=== PATIENT | male | born 1995 | race Hispanic/Latino ===

== ENCOUNTER 2021-04-22 19:33 | Emergency (ER) | payer SELFPAY, OTHER | END 2021-04-22 21:36 | disposition home or self-care (01) | LOC: ERS 19:33 | DX: M54.5 Low back pain (principal); M79.661 Pain in right lower leg; R07.89 Other chest pain; F17.210 Nicotine dependence, cigarettes, uncomplicated; V89.2XXA Person injured in unspecified motor-vehicle accident, traffic, initial encounter | CPT/HCPCS: 71045; 72131 ==

== ENCOUNTER 2022-06-20 13:47 | Emergency (ER) | payer OTHER, SELFPAY ==
[2022-06-20] MEDS ORDERED: Ketorolac Tromethamine 30 MG/ML VIAL ONE (15:41)
[2022-06-20] MEDS ORDERED: Metoclopramide HCl 10 MG/2 ML VIAL ONE (15:41)
[2022-06-20] MEDS ORDERED: Dexamethasone 10 MG/ML VIAL ONE (17:28)
== END 2022-06-20 18:01 | disposition home or self-care (01) ==
LOC: ERS 13:47
DX: G43.909 Migraine, unspecified, not intractable, without status migrainosus (principal); F17.210 Nicotine dependence, cigarettes, uncomplicated
CPT/HCPCS: 96365; 96375; J1100; J1885; J2765